=== PATIENT | female | born 1965 | race Caucasian/White ===

== ENCOUNTER → 2017-01-16 | Outpatient (CLI) | payer BC ==
[~2017-01-16] MED LIST: ALLEGRA PO; ATENOLOL PO; CALCIUM + D 6001 TA1 PO; GLUCOSAMINE1000 MG PO; LISINOPRIL-HCTZ1 T21 PO; PRILOSEC PO; VITAMIN C1000 M2 PO
== END | disposition home or self-care (01) ==
LOC: CECH 12:22
DX: R01.1 Cardiac murmur, unspecified (principal)
CPT/HCPCS: 93306